=== PATIENT | female | born 1995 | race Caucasian/White ===

== ENCOUNTER 2018-12-04 13:05 | Emergency (ER) | payer OTHER ==
--- NOTE | 2018-12-04 13:48 | ED ---
General Adult HPI - General Chief complaint: Extremity Injury, Lower Stated complaint: Knee injury Time Seen by Provider: 12/04/18 13:13 Source: patient, RN notes reviewed Mode of arrival: ambulatory - History of Present Illness Initial comments: Patient is a 23-year-old female presented to the emergency room today with chief complaint of an injury to the left knee that occurred this morning approximately 6 AM. She states she stepped outside and it was wet and her foot slipped causing her left knee to go home from under her. She states that today when around to the side. She does admit to pain to the medial aspect of left knee. She states does not seem like it's improving. Side come here to the restroom to have it checked. Denies any bites or symptoms at this time. Patient denies any recent fever, chills, shortness of breath, chest pain, back pain, abdominal pain, headaches or visual changes, or any other complaints. - Related Data Previous Rx's Medication Instructions Recorded Ibuprofen [Motrin] 600 mg PO Q6HR PRN #40 day 12/04/18 Allergies Allergy/AdvReac Type Severity Reaction Status Date / Time No Known Allergies Allergy Verified 12/04/18 13:11 Review of Systems ROS Statement: Those systems with pertinent positive or pertinent negative responses have been documented in the HPI. ROS Other: All systems not noted in ROS Statement are negative. Past Medical History Past Medical History: No Reported History History of Any Multi-Drug Resistant Organisms: None Reported Past Surgical History: No Surgical Hx Reported Past Psychological History: No Psychological Hx Reported Smoking Status: Current every day smoker Past Alcohol Use History: Occasional Past Drug Use History: None Reported General Exam - General Exam Comments Initial Comments: General: The patient is awake and alert, in no distress, and does not appear acutely ill. Eye: There is normal conjunctiva bilaterally. No signs of icterus. Musculoskeletal: Patient does have a normal appearance of left knee no obvious deformity. Patient does show good range of motion. Slightly limited with full extension and flexion at the left knee minus approximately 10. Pedal pulses 2+ her sensations are intact. Patient does have tenderness to the medial aspect of the left knee on palpation. Positive valgus stress. Negative varus. Neurological: A&O x 3. CN II-XII intact, There are no obvious motor or sensory deficits. Coordination appears grossly intact. Speech is normal. Skin: Skin is warm and dry and no rashes or lesions are noted. Psychiatric: Cooperative, appropriate mood & affect, normal judgment. Course Vital Signs 12/04/18 13:08 Temperature 98.4 F Pulse Rate 115 H Respiratory 20 Rate Blood Pressure 145/89 O2 Sat by Pulse 99 Oximetry Medical Decision Making - Medical Decision Making X-ray reviewed negative for any acute fracture dislocation. Results were discussed with the patient. Patient given immobilizer here the emergency room for stability. Patient given a pressure for crutches. Advised to ice elevate the affected area and use for pain. She is advised to follow-up with orthopedics over the next 2-5 days. Advised to return here to emergency room if any symptoms increase or worsen or for any other concerns. Disposition Clinical Impression: Knee injury Disposition: HOME SELF-CARE Condition: Good Instructions (If sedation given, give patient instructions): Knee Pain (ED) Additional Instructions: Please use medication as discussed. Follow with the orthopedic doctor in the next 2-5 days. Please use knee immobilizer when up and moving around. Use crutches weightbearing as tolerated. Return here to emergency room for any other concerns.. Prescriptions: Ibuprofen [Motrin] 600 mg PO Q6HR PRN #40 day PRN Reason: Pain Is patient prescribed a controlled substance at d/c from ED?: No Referrals: None,Stated [Primary Care Provider] - 1-2 days Mikhail Velez MD [STAFF PHYSICIAN] - 1-2 days Time of Disposition: 13:54
--- NOTE | 2018-12-04 14:07 | XR ---
EXAMINATION TYPE: XR knee complete LT DATE OF EXAM: 12/04/2018 COMPARISON: NONE HISTORY: 23 year-old female left knee pain after fall TECHNIQUE: 3 views FINDINGS: Extensor mechanism is intact. No acute fracture, subluxation, or dislocation. No significant knee xin nt effusion. IMPRESSION: No acute osseous abnormality seen.
[2018-12-04 14:39] VITALS: BP 125/78; PULSE 92; RESP 18; TEMP 98.1
== END 2018-12-04 14:20 | disposition home or self-care (01) ==
LOC: EC 13:05
DX: S89.92XA Unspecified injury of left lower leg, initial encounter (principal); F17.200 Nicotine dependence, unspecified, uncomplicated; W01.0XXA Fall on same level from slipping, tripping and stumbling without subsequent striking against object, initial encounter; Y93.89 Activity, other specified
CPT/HCPCS: 73562; 99283; L1830 ×2

== ENCOUNTER 2019-02-02 14:52 | Emergency (ER) | payer OTHER ==
[2019-02-02 15:15] VITALS: BP 144/83; PULSE 88; RESP 18; TEMP 98.7
--- NOTE | 2019-02-02 15:41 | ED ---
Female Urogenital HPI - General Chief complaint: Urogenital Stated complaint: Urogenital Time Seen by Provider: 02/02/19 15:15 Source: patient, RN notes reviewed Mode of arrival: ambulatory Limitations: no limitations - History of Present Illness Initial comments: 23-year-old female presents emergency Department chief complaint of urinary frequency and dysuria with hematuria. Patient states started a few days ago patient states that he urine tract infection and feels exactly the same. She denies any vaginal bleeding or vaginal discharge. Denies any chance . Patient has no current flank pain, nausea and diarrhea constipation. Patient offers no other complaints. - Related Data Previous Rx's Medication Instructions Recorded Ibuprofen [Motrin] 600 mg PO Q6HR PRN #40 day 12/04/18 Cephalexin [Keflex] 500 mg PO Q8HR #21 cap 02/02/19 Allergies Allergy/AdvReac Type Severity Reaction Status Date / Time No Known Allergies Allergy Verified 02/02/19 15:11 Review of Systems ROS Statement: Those systems with pertinent positive or pertinent negative responses have been documented in the HPI. ROS Other: All systems not noted in ROS Statement are negative. Past Medical History Past Medical History: No Reported History History of Any Multi-Drug Resistant Organisms: None Reported Past Surgical History: No Surgical Hx Reported Past Psychological History: No Psychological Hx Reported Smoking Status: Current every day smoker Past Alcohol Use History: Occasional Past Drug Use History: None Reported General Exam Limitations: no limitations General appearance: alert, in no apparent distress Head exam: Present: atraumatic, normocephalic, normal inspection Respiratory exam: Present: normal lung sounds bilaterally. Absent: respiratory distress, wheezes, rales, rhonchi, stridor Cardiovascular Exam: Present: regular rate, normal rhythm, normal heart sounds. Absent: systolic murmur, diastolic murmur, rubs, gallop, clicks GI/Abdominal exam: Present: soft, normal bowel sounds. Absent: distended, tenderness, guarding, rebound, rigid Back exam: Absent: CVA tenderness (R), CVA tenderness (L) Skin exam: Present: warm, dry, intact, normal color. Absent: rash Course Vital Signs 02/02/19 15:11 Temperature 98.7 F Pulse Rate 88 Respiratory 18 Rate Blood Pressure 144/83 O2 Sat by Pulse 97 Oximetry Medical Decision Making - Medical Decision Making 23-year-old female presented emergency department for pus UTI urinalysis was obtained shows possible WBCs on microscopic Urine analysis. Patient will be discharged on Keflex. Patient was offered Rocephin patient declined - Lab Data Lab Results 02/02/19 02/02/19 Range/Units 15:30 15:30 Urine Color Colorless Urine Appearance Cloudy H (Clear) Urine pH 6.0 (5.0-8.0) Ur Specific [place] 1.003 (1.001-1.035) Urine Protein Negative (Negative) Urine Glucose (UA) Negative (Negative) Urine Ketones Negative (Negative) Urine Blood Moderate H (Negative) Urine Nitrite Negative (Negative) Urine Bilirubin Negative (Negative) Urine Urobilinogen <2.0 (<2.0) mg/dL Ur Leukocyte Esterase Large H (Negative) Urine RBC 2 (0-5) /hpf Urine WBC 115 H (0-5) /hpf Ur Squamous Epith Cells 2 (0-4) /hpf Urine Bacteria Rare H (None) /hpf Urine Mucus Rare H (None) /hpf Urine HCG, Qual Not Detected (Not Detectd) Disposition Clinical Impression: Urinary tract infection Disposition: HOME SELF-CARE Condition: Stable Instructions (If sedation given, give patient instructions): Urinary Tract Infection in Women (ED) Additional Instructions: Please return to the Emergency Department if symptoms worsen or any other con cerns. Prescriptions: Cephalexin [Keflex] 500 mg PO Q8HR #21 cap Is patient prescribed a controlled substance at d/c from ED?: No Referrals: None,Stated [Primary Care Provider] - 1-2 days Time of Disposition: 15:57
[2019-02-02 15:47] LABS: Appearance,Urine Cloudy (Clear); Bacteria,Urine Rare /hpf; Bilirubin,Urine Negative (Negative); Blood,Urine Moderate (Negative); Color,Urine Colorless; Glucose,Urine (UA) Negative (Negative); Ketones,Urine Negative (Negative); Leukocyte Esterase,Urine Large (Negative); Mucus,Urine Rare /hpf; Nitrite,Urine Negative (Negative); Protein,Urine Negative (Negative); RBC,Urine 2 /hpf (0-5); Specific Gravity,Urine 1.003 (1.001-1.035); Squamous Epithelial Cell,Urine 2 /hpf (0-4); Urobilinogen,Urine <2.0 mg/dL (<2.0)
== END 2019-02-02 16:00 | disposition home or self-care (01) ==
LOC: EC 14:52
DX: N39.0 Urinary tract infection, site not specified (principal); F17.200 Nicotine dependence, unspecified, uncomplicated
CPT/HCPCS: 81001; 81025; 87086; 99283

== ENCOUNTER 2021-06-01 02:51 | Emergency (ER) | payer OTHER ==
--- NOTE | 2021-06-01 03:02 | ED ---
Female Urogenital HPI - General Stated complaint: painful urination Time Seen by Provider: 06/01/21 02:59 Source: RN notes reviewed, old records reviewed Limitations: no limitations - History of Present Illness Initial comments: This is a 25-year-old female presented today for evaluation regards to dysuria. No nausea vomiting or diarrhea, no history of CVA. No back pain. No other complaints. Patient is no significant medical history takes no medications no ALLERGIES MD Complaint: dysuria -: days(s) Location: suprapubic Radiation: suprapubic Severity: mild Severity scale (1-10): 3 Quality: sharp Consistency: constant Improves with: urination Worsens with: urination Patient : No Associated Symptoms: denies other symptoms - Related Data Previous Rx's Medication Instructions Recorded Ibuprofen [Motrin] 600 mg PO Q6HR PRN #40 day 12/04/18 Cephalexin [Keflex] 500 mg PO Q8HR #21 cap 02/02/19 Nitrofurantoin Monohyd/M-Cryst 100 mg PO Q12HR #10 cap 06/01/21 [Macrobid] Allergies Allergy/AdvReac Type Severity Reaction Status Date / Time No Known Allergies Allergy Verified 06/01/21 03:07 Review of Systems ROS Statement: Those systems with pertinent positive or pertinent negative responses have been documented in the HPI. ROS Other: All systems not noted in ROS Statement are negative. Past Medical History Past Medical History: No Reported History History of Any Multi-Drug Resistant Organisms: None Reported Past Surgical History: No Surgical Hx Reported Past Psychological History: No Psychological Hx Reported Past Alcohol Use History: Occasional Past Drug Use History: None Reported General Exam General appearance: alert, in no apparent distress Head exam: Present: atraumatic, normocephalic, normal inspection Eye exam: Present: normal appearance, PERRL, EOMI. Absent: scleral icterus, conjunctival injection, periorbital swelling ENT exam: Present: normal exam, mucous membranes moist Neck exam: Present: normal inspection. Absent: tenderness, meningismus, lymphadenopathy Respiratory exam: Present: normal lung sounds bilaterally. Absent: respiratory distress, wheezes, rales, rhonchi, stridor Cardiovascular Exam: Present: regular rate, normal rhythm, normal heart sounds. Absent: systolic murmur, diastolic murmur, rubs, gallop, clicks GI/Abdominal exam: Present: soft, normal bowel sounds. Absent: distended, tenderness, guarding, rebound, rigid Extremities exam: Present: normal inspection, full ROM, normal capillary refill. Absent: tenderness, pedal edema, joint swelling, calf tenderness Back exam: Present: normal inspection Neurological exam: Present: alert, oriented X3, CN II-XII intact Psychiatric exam: Present: normal affect, normal mood Skin exam: Present: warm, dry, intact, normal color. Absent: rash Course Vital Signs 06/01/21 03:05 Temperature 98.4 F Pulse Rate 93 Respiratory 18 Rate Blood Pressure 143/97 O2 Sat by Pulse 100 Oximetry - Reevaluation(s) Reevaluation #1: 06/01/21 03:40 medical record is reviewed Reevaluation #2: 06/01/21 03:41 patient is in no acute distress Reevaluation #3: 06/01/21 03:41 patient informed of results and questions answered Medical Decision Making - Medical Decision Making 25 female to the emergency room today. Patient Dese for evaluation of dysuria positive for urinary tract infection. Patient placed on antibiotics and can be discharged home - Lab Data Lab Results 06/01/21 Range/Units 03:03 Urine Color Colorless Urine Appearance Cloudy H (Clear) Urine pH 6.0 (5.0-8.0) Ur Specific [place] 1.003 (1.001-1.035) Urine Protein Negative (Negative) Urine Glucose (UA) Negative (Negative) Urine Ketones Negative (Negative) Urine Blood Moderate H (Negative) Urine Nitrite Negative (Negative) Urine Bilirubin Negative (Negative) Urine Urobilinogen <2.0 (<2.0) mg/dL Ur Leukocyte Esterase Large H (Negative) Urine RBC 2 (0-5) /hpf Urine WBC >182 H (0-5) /hpf Urine WBC Clumps Few H (None) /hpf Ur Squamous Epith Cells 2 (0-4) /hpf Urine Bacteria Rare H (None) /hpf Disposition Clinical Impression: Urinary tract infection Disposition: HOME SELF-CARE Condition: Good Instructions (If sedation given, give patient instructions): Urinary Tract Infection in Women (ED) Prescriptions: Nitrofurantoin Monohyd/M-Cryst [Macrobid] 100 mg PO Q12HR #10 cap Is patient prescribed a controlled substance at d/c from ED?: No Referrals: None,Stated [Primary Care Provider] - 1-2 days
[2021-06-01 03:07] VITALS: BP 143/97; PULSE 93; RESP 18; TEMP 98.4
[2021-06-01 03:29] LABS: Appearance,Urine Cloudy (Clear); Bacteria,Urine Rare /hpf; Bilirubin,Urine Negative (Negative); Blood,Urine Moderate (Negative); Color,Urine Colorless; Glucose,Urine (UA) Negative (Negative); Ketones,Urine Negative (Negative); Leukocyte Esterase,Urine Large (Negative); Nitrite,Urine Negative (Negative); Protein,Urine Negative (Negative); RBC,Urine 2 /hpf (0-5); Specific Gravity,Urine 1.003 (1.001-1.035); Squamous Epithelial Cell,Urine 2 /hpf (0-4); Urobilinogen,Urine <2.0 mg/dL (<2.0); WBC,Urine >182 /hpf (0-5)
[2021-06-01] MEDS ORDERED: NITROFURANTOIN MONOHYD/M-CRYST 100 MG CAP PO STA (03:37)
[2021-06-01] MEDS ORDERED: PHENAZOPYRIDINE 200 MG TAB PO STA (03:45)
[2021-06-01] MEDS ORDERED: IBUPROFEN 800 MG TAB PO STA (03:53)
[2021-06-01] MEDS ORDERED: ACETAMINOPHEN TAB 500 MG TAB PO STA (03:53)
== END 2021-06-01 04:00 | disposition home or self-care (01) ==
LOC: EC 02:51
DX: N39.0 Urinary tract infection, site not specified (principal)
CPT/HCPCS: 81001; 87077; 87086; 87186; 99283